=== PATIENT | male | born 1995 | race Caucasian/White ===

== ENCOUNTER 2019-02-06 16:19 | Emergency (ER) | payer OTHER ==
[2019-02-06] MEDS ORDERED: SODIUM CHLORIDE 0.9% 1,000 ML IV ONE (16:54)
--- NOTE | 2019-02-06 17:03 | ED ---
General Adult HPI - General Chief complaint: Abdominal Pain Stated complaint: Poss GI Bleed Time Seen by Provider: 02/06/19 16:39 Source: patient Mode of arrival: ambulatory Limitations: no limitations - History of Present Illness Initial comments: Patient presents to the ED with his mother and girlfriend for evaluation. Patient states that he has had intermittent, crampy, lower abdominal pain for the past month or so. Patient states that about 2 weeks ago, he also had a single bout of rectal bleeding. Patient also states that he has been intermi ttently constipated, as well as intermittently having diarrhea for the past month or so. Patient states that he felt lightheaded on the way to the emergency room today, but he denies feeling lightheaded or dizzy currently. Patient states that his abdominal pain is currently very mild. Patient denies trauma or injury, fever or chills, headache, chest pain, dyspnea, syncope, upper abdominal pain, back or flank pain, nausea or vomiting, melena, dysuria/hematuria/urinary frequency/urinary symptoms, or any other symptoms or complaints. - Related Data Allergies Allergy/AdvReac Type Severity Reaction Status Date / Time Penicillins Allergy Rash/Hives Verified 02/06/19 16:23 Review of Systems ROS Statement: Those systems with pertinent positive or pertinent negative responses have been documented in the HPI. ROS Other: All systems not noted in ROS Statement are negative. Past Medical History Past Medical History: No Reported History Past Surgical History: No Surgical Hx Reported Past Psychological History: No Psychological Hx Reported Smoking Status: Never smoker Past Alcohol Use History: Daily Past Drug Use History: None Reported General Exam Limitations: no limitations General appearance: alert, in no apparent distress Head exam: Present: atraumatic, normocephalic Eye exam: Present: normal appearance, EOMI ENT exam: Present: mucous membranes moist Neck exam: Present: other (Trachea is in midline) Respiratory exam: Present: normal lung sounds bilaterally. Absent: respiratory distress, wheezes, rales, rhonchi Cardiovascular Exam: Present: regular rate, normal rhythm, normal heart sounds, other (Normal radial pulses bilaterally) GI/Abdominal exam: Present: soft, hyperactive bowel sounds. Absent: distended, tenderness, guarding Back exam: Absent: CVA tenderness (R), CVA tenderness (L) Neurological exam: Present: alert, oriented X3 Psychiatric exam: Present: normal affect, normal mood Skin exam: Present: warm, dry, intact, normal color Course Vital Signs 02/06/19 16:21 Temperature 97.7 F Pulse Rate 73 Respiratory 16 Rate Blood Pressure 153/90 O2 Sat by Pulse 100 Oximetry Medical Decision Making - Medical Decision Making Patient's vital signs are reassuring. Patient's abdomen has been soft and nontender while in the ED. Patient's labs are fairly unremarkable, including a normal white blood cell count and normal UA. Patient's CT abdomen and pelvis with IV contrast is positive for some nonspecific findings, which may suggest possible mesenteric adenitis. Patient's appendix is seen and noted to be normal on CT. I do not suspect a surgical or emergent medical condition. Patient states that he is currently feeling well. Patient, mother and girlfriend are aware of the patient's test results. Patient was counseled about abdominal pain and mesenteric adenitis. Patient states that he has an appointment scheduled to see his primary care provider in 2 days. Patient feels comfortable going home at this time. Patient was clearly explained return and follow-up instructions. - Lab Data Result diagrams: 02/06/19 17:10 02/06/19 17:10 Lab Results 02/06/19 02/06/19 02/06/19 Range/Units 17:10 17:10 17:10 WBC 5.7 (3.8-10.6) k/uL RBC 4.97 (4.30-5.90) m/uL Hgb 14.7 (13.0-17.5) gm/dL Hct 42.8 (39.0-53.0) % MCV 86.2 (80.0-100.0) fL MCH 29.6 (25.0-35.0) pg MCHC 34.3 (31.0-37.0) g/dL RDW 11.6 (11.5-15.5) % Plt Count 197 (150-450) k/uL Neutrophils % 65 % Lymphocytes % 20 % Monocytes % 7 % Eosinophils % 5 % Basophils % 2 % Neutrophils # 3.7 (1.3-7.7) k/uL Lymphocytes # 1.1 (1.0-4.8) k/uL Monocytes # 0.4 (0-1.0) k/uL Eosinophils # 0.3 (0-0.7) k/uL Basophils # 0.1 (0-0.2) k/uL Sodium 141 (137-145) mmol/L Potassium 4.1 (3.5-5.1) mmol/L Chloride 107 (98-107) mmol/L Carbon Dioxide 23 (22-30) mmol/L Anion Gap 11 mmol/L BUN 17 (9-20) mg/dL Creatinine 0.96 (0.66-1.25) mg/dL Est GFR (CKD-EPI)AfAm >90 (>60 ml/min/1.73 sqM) Est GFR (CKD-EPI)NonAf >90 (>60 ml/min/1.73 sqM) Glucose 106 H (74-99) mg/dL Calcium 9.5 (8.4-10.2) mg/dL Total Bilirubin 0.5 (0.2-1.3) mg/dL AST 31 (17-59) U/L ALT 37 (21-72) U/L Alkaline Phosphatase 59 (38-126) U/L Total Protein 8.3 H (6.3-8.2) g/dL Albumin 5.0 (3.5-5.0) g/dL Lipase 78 (23-300) U/L Urine Color Light Yellow Urine Appearance Clear (Clear) Urine pH 7.0 (5.0-8.0) Ur Specific [place] 1.011 (1.001-1.035) Urine Protein Negative (Negative) Urine Glucose (UA) Negative (Negative) Urine Ketones Negative (Negative) Urine Blood Negative (Negative) Urine Nitrite Negative (Negative) Urine Bilirubin Negative (Negative) Urine Urobilinogen <2.0 (<2.0) mg/dL Ur Leukocyte Esterase Negative (Negative) - Radiology Data Radiology results: report reviewed (CT abdomen/pelvis with IV contrast is positive for 1. mild bladder wall thickening; 2. questionable trace free fluid in the right side of the pelvis; and 3. numerous scattered nonenlarged and borderline enlarged mesenteric lymph nodes, which may be reactive/postinflammat ory or may represent mesenteric adenitis ) Disposition Clinical Impression: Abdominal pain Narrative: Possible mesenteric adenitis. Disposition: HOME SELF-CARE Condition: Stable Instructions (If sedation given, give patient instructions): Abdominal Pain ( ED), Mesenteric Adenitis (ED) Additional Instructions: Return to the ER immediately should you develop new or worsening pain, a fever, vomiting, feeling dizzy or faint, shortness of breath, or new or worsening symptoms. Follow up with your primary care provider on Friday (in 2 days) as scheduled. Is patient prescribed a controlled substance at d/c from ED?: No Referrals: Nonstaff,Physician [Primary Care Provider] - 1-2 days Time of Disposition: 19:17
[2019-02-06 17:17] LABS: Basophils # (A) 0.1 k/uL (0-0.2); Basophils % (A) 2 %; Eosinophils # (A) 0.3 k/uL (0-0.7); Eosinophils % (A) 5 %; HCT 42.8 % (39.0-53.0); HGB 14.7 gm/dL (13.0-17.5); Lymphocytes # (A) 1.1 k/uL (1.0-4.8); Lymphocytes % (A) 20 %; MCH 29.6 pg (25.0-35.0); MCHC 34.3 g/dL (31.0-37.0); MCV 86.2 fL (80.0-100.0); Mean Platelet Volume 7.6; Monocytes # (A) 0.4 k/uL (0-1.0); Monocytes % (A) 7 %; Neutrophils # (A) 3.7 k/uL (1.3-7.7); Neutrophils % (A) 65 %; Platelet Count 197 k/uL (150-450); RBC 4.97 m/uL (4.30-5.90); RDW 11.6 % (11.5-15.5); WBC 5.7 k/uL (3.8-10.6)
[2019-02-06 17:22] LABS: Appearance,Urine Clear (Clear); Bilirubin,Urine Negative (Negative); Blood,Urine Negative (Negative); Color,Urine Light Yellow; Glucose,Urine (UA) Negative (Negative); Ketones,Urine Negative (Negative); Leukocyte Esterase,Urine Negative (Negative); Nitrite,Urine Negative (Negative); Protein,Urine Negative (Negative); Specific Gravity,Urine 1.011 (1.001-1.035); Urobilinogen,Urine <2.0 mg/dL (<2.0)
[2019-02-06 17:35] LABS: ALT 37 U/L (21-72); AST 31 U/L (17-59); African American GFR (CKD) >90 (>60 ml/min/1.73 sqM); Alkaline Phosphatase 59 U/L (38-126); Anion Gap 11 mmol/L; Blood Urea Nitrogen 17 mg/dL (9-20); Calcium 9.5 mg/dL (8.4-10.2); Carbon Dioxide 23 mmol/L (22-30); Chloride 107 mmol/L (98-107); Glucose 106 mg/dL (74-99); Non-African American GFR(CKD) >90 (>60 ml/min/1.73 sqM); Potassium 4.1 mmol/L (3.5-5.1); Sodium 141 mmol/L (137-145); Total Bilirubin 0.5 mg/dL (0.2-1.3); Total Protein 8.3 g/dL (6.3-8.2)
--- NOTE | 2019-02-06 17:50 | CT ---
EXAMINATION TYPE: CT abdomen pelvis w con DATE OF EXAM: 02/06/2019 COMPARISON: NONE HISTORY: low 23-year-old male anterior abdominal and anal pain TECHNIQUE: Contiguous axial scanning of the abdomen and pelvis following administration of 100 ml Iso krupa 300 IV contrast. Delayed images through the kidneys and coronal/sagittal reconstructions perform ed. CT DLP: 641.6 mGycm Automated exposure control for dose reduction was used. FINDINGS: LUNG BASES: No significant abnormality is appreciated. LIVER/GB: Liver mildly enlarged at 18.3 cm. No focal lesion. Gallbladder appears within normal limits . PANCREAS: No significant abnormality is seen. SPLEEN: No significant abnormality is seen. ADRENALS: No significant abnormality is seen. KIDNEYS: No significant abnormality is seen. REPRODUCTIVE ORGANS: No significant abnormality is seen BOWEL: No significant abnormality is seen. Mild scattered stool. Normal appendix seen on the coronal series. No pericolonic inflammatory change. LYMPH NODES: Scattered numerous nonenlarged and borderline enlarged lymph nodes are present throughou t the mesentery measuring up to 6 mm. No retroperitoneal lymphadenopathy. PELVIS: Possible trace free fluid within the right side of the pelvis, refer to axial image 62 and 63 and coronal image 49. The exact etiology is unclear. It may be very mild bladder wall thickening. Re ctum and region of the anus show no gross organomegaly. BONES: No osseous destructive process. Mild bulging disc at L5-S1. IMPRESSION: 1. VERY MILD BLADDER WALL THICKENING OR CORRELATE TO EXCLUDE CYSTITIS. 2. QUESTIONABLE TRACE FREE FLUID IN THE RIGHT SIDE OF THE PELVIS. THIS IS OF UNCLEAR ETIOLOGY. A NORM AL APPENDIX IS VISUALIZED. CORRELATE TO EXCLUDE ASCENDING INFLAMMATION SUCH FROM EPIDIDYMITIS. 3. NUMEROUS SCATTERED NONENLARGED AND BORDERLINE ENLARGED MESENTERIC LYMPH NODES MEASURING UP TO 6 MM . FINDINGS MAY BE REACTIVE/POST INFLAMMATORY OR COULD REFLECT MESENTERIC ADENITIS.
[2019-02-06 19:36] VITALS: BP 130/95; PULSE 56; RESP 18; TEMP 97.6
== END 2019-02-06 19:36 | disposition home or self-care (01) ==
LOC: EC 16:19
DX: R10.30 Lower abdominal pain, unspecified (principal); R19.7 Diarrhea, unspecified; Z88.0 Allergy status to penicillin
CPT/HCPCS: 36415; 80053; 83690; 85025; 81003; 74177; 99284; 96360; 96361; Q9967